=== PATIENT | female | born 1965 | race Caucasian/White ===

== ENCOUNTER 2021-03-17 16:27 | Emergency (ER) | payer OTHER, MEDICARE, MEDICAID ==
[~2021-03-17] VITALS: Ht 162.6 cm; Wt 69.9 kg
--- NOTE | 2021-03-17 16:38 | NUR ---
Pt ambulatory to room from triage with steady gait.
--- NOTE | 2021-03-17 16:54 | NUR ---
obstetrical tech reports pt has new c/o of neck pain while in for lumbar spine films. PA notified.
--- NOTE | 2021-03-17 17:49 | NUR ---
Awaiting other radiology exams at this time.
--- NOTE | 2021-03-17 18:00 | NUR ---
Request for pain meds made of PA via ED board notes.
--- NOTE | 2021-03-17 18:32 | NUR ---
Pt back to room from CT now.
[2021-03-17] MEDS ORDERED: IBUPROFEN 600 MG TABLET ONE (18:35)
[2021-03-17] MEDS ORDERED: ACETAMINOPHEN 500 MG TABLET ONE (18:35)
--- NOTE | 2021-03-17 18:38 | NUR ---
Pt medicated for pain at this time.
[2021-03-17] MEDS ORDERED: ACETAMINOPHEN 500 MG TABLET PO ONE (19:00)
[2021-03-17] MEDS ORDERED: IBUPROFEN 600 MG TABLET PO ONE (19:00)
--- NOTE | 2021-03-17 19:15 | NUR ---
PA at bedside to discuss radiology findings with pt and plan of care.
[2021-03-17 19:28] VITALS: BP 127/66
== END 2021-03-17 19:30 | disposition home or self-care (01) ==
LOC: ED 16:42
DX: S22.060A Wedge compression fracture of T7-T8 vertebra, initial encounter for closed fracture (principal); S16.1XXA Strain of muscle, fascia and tendon at neck level, initial encounter; M54.5 Low back pain; M54.6 Pain in thoracic spine; V49.09XA Driver injured in collision with other motor vehicles in nontraffic accident, initial encounter; Y93.89 Activity, other specified; Y92.410 Unspecified street and highway as the place of occurrence of the external cause; Y99.8 Other external cause status
CPT/HCPCS: 72072; 72110; 72125; 99284